=== PATIENT | female | born 1970 | race Caucasian/White ===

== ENCOUNTER 2017-05-15 14:19 | Emergency (ER) | payer MEDICARE, BC ==
[2017-05-15 14:35] VITALS: BP 140/90
[2017-05-15] MEDS ORDERED: KETOROLAC TROMETHAMINE 60 MG/2 ML VIAL IM ONE ×2 (14:45→14:51)
[2017-05-15] MEDS ORDERED: ORPHENADRINE CITRATE 30 MG/ML VIAL IM ONE (14:46)
[2017-05-15] MEDS ORDERED: ORPHENADRINE CITRATE 30 MG/ML VIAL ONE ×3 (14:51→15:26)
[2017-05-15] MEDS ORDERED: ACETAMINOPHEN WITH CODEINE 1 EACH TABLET PO ONE (15:19)
--- NOTE | 2017-05-15 15:21 | ERNOTE ---
Back Pain ER HPI Date of Service: 05/15/17 Presenting Symptoms: injury/pain to back Time Seen by Provider: 05/15/17 14:39 Source: patient, family, RN notes reviewed Exam Limitations: clinical condition Immunizations: IMMUNIZATION HX Immunizations Up to Date Yes History of Influenza Vaccine Yes Hx Pneumococcal Vaccination Yes Allergies/Adverse Reactions: Allergies amoxicillin Allergy (Verified 05/15/17 15:05) ciprofloxacin Allergy (Verified 05/15/17 15:05) escitalopram Allergy (Verified 05/15/17 15:05) fluoxetine Allergy (Verified 05/15/17 15:05) fluphenazine Allergy (Verified 05/15/17 15:05) haloperidol Allergy (Verified 05/15/17 15:05) Iodinated Contrast- Oral and IV Dye Allergy (Verified 05/15/17 15:05) ketorolac Allergy (Verified 05/15/17 15:05) lurasidone Allergy (Verified 05/15/17 15:05) risperidone Allergy (Verified 05/15/17 15:05) trazodone Allergy (Verified 05/15/17 15:05) Home Medications: HOME MEDICATIONS Acetaminophen with Codeine [Tylenol with Codeine #3 Tablet] 1 - 2 tab PO Q6H PRN #20 tab 05/15/17 [Last Taken Unknown] Narrative: 47 year old female presents to the ED by private vehicle for low back pain radiating to her left hip and leg. She reports having similar symptoms in the past. The pain began last week after she had been working with physical therapy. She had a CVA approximately 3 months ago and just recently returned home. She is on Baclofen and has been taking Tylenol. She has not been seen here before, [facility], and lives in [place]. Date (Duration): 05/10/17 Timing: Reports: constant Quality/Severity: Reports: severe Location of pain: Reports: lower back, radiating to lf thigh/leg Activities at Onset: Reports: activity Recent Injury?: Reports: no Prior Treament: Reports: similar symptoms before. Denies: recently seen Review of Systems - Review of Systems Constitutional: Present: recent illness. Absent: fever, chills EYE: Present: no symptoms reported ENT: Present: no symptoms reported Respiratory: Present: no symptoms reported Cardiology: Present: no symptoms reported Gastrointestinal/Abdominal: Absent: vomiting, abdominal pain Genitourinary: Absent: hematuria, decreased urinary output Musculoskeletal: Present: back pain, muscle pain. Absent: joint pain, joint swelling Skin: Absent: lesions, lumps, change in color Neurological: Present: pre-existing deficit. Absent: weakness, numbness Endocrine: Present: no symptoms reported Hematologic/Lymphatic: Present: no symptoms reported Psych: Present: emotional problems - Patient's Past Medical History Patient History - Medical: Depression, Obesity Patient History - Cardiac/Respiratory: Asthma, CVA/Stroke, Hypertension, Hyperlipidemia Patient History - Cancer: Cervical Patient History - Surgical Procedures: Cholecystectomy, Hysterectomy, Total Knee Replacement Patient History - Other: None LMP (females 10-50): hysterectomy - Social History Living Situations: home Psych History: Hx of Anxiety, Hx of Depression, Current tx/ever been on anti- depressants or anti-anxiety meds Smoking Status: Current every day smoker Alcohol Use: none Drug Use: none - Immunizations Immunizations Up to Date: Yes Hx Pneumococcal Vaccination: Yes History of Influenza Vaccine: Yes Physical Exam - Physical Exam General Appearance: Present: alert, mild distress, obese Respiratory: Present: no respiratory distress, normal breath sounds, no accessory muscle use, lungs clear Cardiovascular/Chest: Present: regular rate, rhythm, no murmur Extremity Exam: Present: normal inspection, normal range of motion Neurological Exam: Present: alert, oriented, no motor/sensory deficits, other - expressive aphasia, occasional speech difficulty, very angry and demanding. Absent: normal mood/affect Skin Exam: Present: normal color, warm/dry ED Progress - Vital Signs Patient's Vital Signs:: I have reviewed the patient's vital signs. Vital Signs: Vital Signs 05/15/17 14:21 Temperature 36.9 C Pulse Rate 106 H Respiratory 15 Rate Blood Pressure 140/90 O2 Sat by Pulse 97 Oximetry - Progress/Reassessment Chief Complaint: Hip Pain/Injury Progress:: Improved Plan - Plan Plan: Patient has numerous allergies, including Toradol, which she reports gives her migraines. Tried to reason with her that a headache seems like it wound be preferable to her current back pain but she refuses to try it. Reports that she is usually given Morphine or Fentanyl. Asks to be moved to a "real bed" because she cannot get comfortable despite managing to ride in the car all the way here from [place] because she did not want to go to the ER there. Gave Norflex IM and po Tylenol #3 per her 's recommendation. Patient seems more calm at the time of discharge. Departure Clinical Impression: Sciatica of left side - Departure Disposition: Home Follow Up Needed Condition: Stable Instructions: Back Pain, Adult, [id number] Additional Instructions: Follow up with your doctor if symptoms persist Prescriptions: Acetaminophen with Codeine [Tylenol with Codeine #3 Tablet] 1 - 2 tab PO Q6H PRN #20 tab PRN Reason: Pain
[2017-05-15] MEDS ORDERED: ACETAMINOPHEN WITH CODEINE 1 EACH TABLET ONE ×2 (15:23→15:26)
== END 2017-05-15 15:51 | disposition home or self-care (01) ==
LOC: ER 14:19
DX: M54.32 Sciatica, left side (principal); Z85.41 Personal history of malignant neoplasm of cervix uteri; F17.200 Nicotine dependence, unspecified, uncomplicated